=== PATIENT | male | born 1970 | race Caucasian/White ===

== ENCOUNTER 2016-02-19 13:42 | Inpatient (IN) | payer OTHER, BC ==
[2016-02-19 16:55] VITALS: BMI 36.1
--- NOTE | 2016-02-19 17:14 | HP ---
COWS - Scale Resting Pulse: 0= [place] 80 or Below Sweatin= Chills/Flushing Restless Observation: 3= Extraneous Movement Pupil Size: 0= Normal to Room Light Bone or Joint Aches: 2= Severe Diffuse Aches Runny Nose/ Eye Tearin= Runny Nose/Eyes GI Upset > 30mins: 1= Stomach Cramp Tremor Observation: 2= Slight Tremor Visible Yawning Observation: 0= None Anxiety or Irritability: 2=Irritable/Anxious Goose Flesh Skin: 3=Piloerection COWS Score: 16 CIWA Score - CIWA Score Headache: 0-None Present Admission ROS [facility]HS - HPI Chief Complaint: withdrawal sx Allergies/Adverse Reactions: Allergies Allergy/AdvReac Type Severity Reaction Status Date / Time Penicillins Allergy Verified 02/19/16 17:12 History of Present Illness: 45 years old male with long history of heroin nicotine dependence positive ppd denies mental illness, longest sobriety 17 years is admitted to detox Exam Limitations: No Limitations - Ebola screening Have you traveled outside of the country in the last 21 days: No Have you had contact with anyone from an Ebola affected area: No Have you been sick,other than usual withdrawal symptoms: No Do you have a fever: No - Review of Systems Constitutional: Chills, Changes in sleep EENT: reports: Other ( needed eye glasse) Respiratory: reports: No Symptoms reported Cardiac: reports: No Symptoms Reported GI: reports: Constipated, Poor Fluid Intake, Indigestion, Abdominal cramping : reports: No Symptoms Reported Musculoskeletal: reports: Back Pain, Joint Pain, Muscle Pain, Neck Pain Integumentary: reports: No Symptoms Reported, Other (denies skin conditions) Neuro: reports: Tremors Endocrine: reports: No Symptoms Reported Hematology: reports: No Symptoms Reported Psychiatric: reports: Judgement Intact, Mood/Affect Appropiate, Orientated x3 Other Systems: Reviewed and Negative Patient History - Patient Medical History Hx Anemia: No Hx Asthma: No Hx Chronic Obstructive Pulmonary Disease (COPD): No Hx Cancer: No Hx Cardiac Disorders: No Hx Congestive Heart Failure: No Hx Hypertension: No Hx Hypercholesterolemia: No Hx Pacemaker: No HX Cerebrovascular Accident: No Hx Seizures: No Hx Dementia: No Hx Diabetes: No Hx Gastrointestinal Disorders: No Hx Liver Disease: No Hx Genitourinary Disorders: No Hx Sexually Transmitted Disorders: No Hx Renal Disease (ESRD): No Hx Thyroid Disease: No Hx Human Immunodeficiency Virus (HIV): No Hx Hepatitis C: No Hx Depression: No Hx Suicide Attempt: No Hx Bipolar Disorder: No Hx Schizophrenia: No - Patient Surgical History Past Surgical History: Yes Hx Neurologic Surgery: No Hx Cataract Extraction: No Hx Cardiac Surgery: No Hx Lung Surgery: No Hx Breast Surgery: No Hx Breast Biopsy: No Hx Abdominal Surgery: No Hx Appendectomy: No Hx Cholecystectomy: No Hx Genitourinary Surgery: No Hx Orthopedic Surgery: Yes (left hip right knee 7 years old) Anesthesia Reaction: No - PPD History Previous Implant?: Yes Documented Results: Positive w/o proof Implanted On Prior [facility] Admission?: No PPD to be Administered?: No - Smoking Cessation Smoking history: Current every day smoker Have you smoked in the past 12 months: Yes Aproximately how many cigarettes per day: 10 Cigars Per Day: 0 Hx Chewing Tobacco Use: No Initiated information on smoking cessation: Yes 'Breaking Loose' booklet given: 02/19/16 - Substance & Tx. History Hx Alcohol Use: No Hx Substance Use: Yes Substance Use Type: Cocaine, Opiates, Tranquilizers Hx Substance Use Treatment: Yes - Substances Abused Alprazolam (Xanax) Route: Oral Frequency: 3-6 times per week Amount used: 1-2 mg Age of first use: 44 Date of Last Use: 02/17/16 Heroin Route: Inhalation Frequency: Daily Amount used: 2 1/2 g Age of first use: 20 Date of Last Use: 02/19/16 Family Disease History - Family Disease History Family History: Denies Admission Physical Exam S - Vital Signs Vital Signs: Vital Signs - 24 hr 02/19/16 16:51 Temperature 96.6 F L Pulse Rate 74 Respiratory 20 Rate Blood Pressure 124/65 - Physical General Appearance: Yes: Appropriately Dressed, Mild Distress, Tremorous, Irritable, Sweating, Anxious HEENTM: Yes: Hearing grossly Normal, Normal ENT Inspection, Normocephalic, Normal Voice Respiratory: Yes: Chest Non-Tender, Lungs Clear, Normal Breath Sounds, No Respiratory Distress, No Accessory Muscle Use Neck: Yes: Supple, Trachea in good position Breast: Yes: Breasts Symetrical Cardiology: Yes: Regular Rhythm, Regular Rate, S1, S2 Abdominal: Yes: Non Tender, Soft Genitourinary: Yes: Within Normal Limits Back: Yes: Normal Inspection Musculoskeletal: Yes: full range of Motion (left hip and right knee replacement at age 7), Gait Steady, Muscle Pain Extremities: Yes: Normal Inspection, Normal Range of Motion (left hip right knee replacement age 7), Non-Tender, Tremors Neurological: Yes: Fully Oriented, Alert, Motor Strength 5/5, Normal Mood/Affect , Normal Response Integumentary: Yes: Warm, Clammy Lymphatic: Yes: Within Normal Limits - Diagnostic (1) Opioid dependence with withdrawal Current Visit: Yes Status: Acute (2) Positive PPD, treated Current Visit: Yes Status: Resolved Comment: negative chest x ray 2 years ago (3) Status post left hip replacement Current Visit: Yes Status: Resolved Comment: mild limited range of motion (4) Status post right knee replacement Current Visit: Yes Status: Resolved Comment: mild limited range of motion (5) Nicotine dependence Current Visit: Yes Status: Acute Qualifiers: Nicotine product type: cigarettes Substance use status: uncomplicated Qualified Code(s): F17.210 - Nicotine dependence, cigarettes, uncomplicated Comment: nicotine replacement (6) Constipation Current Visit: Yes Status: Acute Qualifiers: Constipation type: slow transit constipation Qualified Code(s): K59.01 - Slow transit constipation Cleared for Admission [facility] - Detox or Rehab [facility] Level of Care: Medically Managed Detox Regimen/Protocol: Methadone [facility] Breath Alcohol Content Breath Alcohol Content: 0 Urine Drug Screen - Results Drug Screen Negative: No Urine Drug Screen Results: KALYAN-Cocaine, OPI-Opiates, BZO-Benzodiazepines, MTD- Methadone, TCA-Tricyclic Antidepress, OXY-Oxycodone
[2016-02-19] MEDS ORDERED: MENTHOL/PHENOL 1 EACH UD MM PRN (17:22)
[2016-02-19] MEDS ORDERED: MAGNESIUM HYDROX 2400MG/30ML ORAL SUSPENSION 30 ML CUP PO PRN (17:22)
[2016-02-19] MEDS ORDERED: MAG HYDROX/AL HYDROX/SIMETH 30 ML UNIT-DOSE CUP PO PRN (17:22)
[2016-02-19] MEDS ORDERED: MAGNESIUM CITRATE 300 ML BOTTLE PO PRN (17:22)
[2016-02-19] MEDS ORDERED: METHADONE HCL 10 MG TABLET (FOR DETOX USE ONLY) PO ONE ×2 (17:22→23:00)
[2016-02-19] MEDS ORDERED: guaiFENesin/D-METHORPHAN HB 10 ML UNIT-DOSE CUPS PO PRN (17:22)
[2016-02-19] MEDS ORDERED: LOPERAMIDE HCL 2 MG CAPSULE PO PRN (17:22)
[2016-02-19] MEDS ORDERED: NICOTINE POLACRILEX 2 MG GUM BUC PRN (17:22)
[2016-02-19] MEDS ORDERED: DOCUSATE SODIUM 100 MG CAPSULE (FP) PO PRN (17:31)
[2016-02-19] MEDS: diazePAM 5 MG TABLET PO PRN ×2 (18:35→22:06)
[2016-02-19 20:53] LABS: PH,URINE 5.5 (5.0-8.0); URINE APPEARANCE CLEAR; URINE BILIRUBIN NEGATIVE (NEGATIVE); URINE BLOOD NEGATIVE (NEGATIVE); URINE COLOR DK. ORANGE; URINE GLUCOSE (UA) NEGATIVE (NEGATIVE); URINE KETONE TRACE (NEGATIVE); URINE LEUK ESTERASE NEGATIVE (NEGATIVE); URINE NITRITE NEGATIVE (NEGATIVE); URINE PROTEIN TRACE (NEGATIVE); URINE UROBILINOGEN 0.2 E.U/dl E.U./dl (0.2-1.0)
[2016-02-19] MEDS: THIAMINE HCL 100 MG TABLET (FP) PO SCH (22:06)
[2016-02-19] MEDS: diphenhydrAMINE HCL 50 MG CAPSULE PO PRN (22:06)
[2016-02-19] MEDS: P-EPHED 60MG/TRIPROLIDI 2.5MG TABLET PO PRN (22:06)
[2016-02-20] MEDS: diphenhydrAMINE HCL 50 MG CAPSULE PO PRN ×2 (01:37→22:37)
[2016-02-20] MEDS: diazePAM 5 MG TABLET PO PRN ×2 (05:44→18:33)
[2016-02-20] MEDS ORDERED: METHADONE HCL 10 MG TABLET (FOR DETOX USE ONLY) PO ONE (10:00)
[2016-02-20 10:08] LABS: MCH 29.9 pg (25.7-33.7); MCHC 32.8 g/dl (32.0-35.9); MEAN CELL VOLUME 91.2 fl (80-96); MEAN PLT VOLUME 8.7 fl (7.5-11.1); PLATELET COUNT 251 K/MM3 (134-434); WHITE BLOOD COUNT 8.2 K/mm3 (4.0-10.0)
[2016-02-20 10:27] LABS: ALBUMIN 4.3 g/dl (3.4-5.0); ALK PHOS 114 U/L (45-117); ANION GAP 8 (8-16); BILIRUBIN,TOTAL 0.4 mg/dL (0.2-1.0); CALCIUM 9.7 mg/dL (8.5-10.1); CO2 28 mmol/L (21-32); CREATININE 0.9 mg/dL (0.7-1.3); GLUCOSE,RANDOM 84 mg/dL (74-106); SGOT/AST 13 U/L (15-37); SGPT/ALT 18 U/L (12-78); TOT PROT 7.8 g/dl (6.4-8.2)
[2016-02-20] MEDS: PRENATAL VITAMINS W/ FOLIC ACID TABLET (FP) PO SCH (10:27)
[2016-02-20] MEDS: NICOTINE 14 MG/24 HOURS TOPICAL PATCH TD SCH (10:28)
[2016-02-20] MEDS: P-EPHED 60MG/TRIPROLIDI 2.5MG TABLET PO PRN ×2 (10:28→22:37)
[2016-02-20] MEDS ORDERED: cloNIDine HCL 0.1 MG TABLET PO ONE (11:04)
[2016-02-20] MEDS ORDERED: LIDOCAINE 5% TOPICAL PATCH TP ONE (11:36)
[2016-02-20] MEDS: IBUPROFEN 400 MG TABLET (FP) PO PRN (11:52)
--- NOTE | 2016-02-20 13:08 | PN ---
S COWS - Scale Resting Pulse: 1= [place] 81-100 Sweatin=Flushed/Facial Moisture Restless Observation: 1= Difficult to Sit Still Pupil Size: 2= Moderately Dilated Bone or Joint Aches: 2= Severe Diffuse Aches Runny Nose/ Eye Tearin= Nasal Congestion GI Upset > 30mins: 2= Nausea/Diarrhea Tremor Observation of Outstretched Hands: 1= Tremor [place], Not Seen Yawning Observation: 0= None Anxiety or Irritability: 2=Irritable/Anxious Goose Flesh Skin: 0=Smooth Skin COWS Score: 14 S Progress Note (SOAP) Subjective: interrupted slep,sweats, diarrhea , bodyaches , lbp Objective: 02/20/16 13:06 Vital Signs Temperature 98.1 F 02/20/16 09:35 Pulse Rate 84 02/20/16 09:35 Respiratory Rate 20 02/20/16 09:35 Blood Pressure 126/60 02/20/16 09:35 O2 Sat by Pulse Oximetry (%) Laboratory Tests 02/19/16 02/20/16 02/20/16 19:30 06:00 06:00 WBC 8.2 RBC 5.20 Hgb 15.6 Hct 47.5 MCV 91.2 MCHC 32.8 RDW 15.0 Plt Count 251 MPV 8.7 Sodium 141 Potassium 3.6 Chloride 105 Carbon Dioxide 28 Anion Gap 8 BUN 9 Creatinine 0.9 Creat Clearance w eGFR > 60 Random Glucose 84 Calcium 9.7 Total Bilirubin 0.4 AST 13 L ALT 18 Alkaline Phosphatase 114 Total Protein 7.8 Albumin 4.3 Urine Color Dk. orange Urine Appearance Clear Urine pH 5.5 Ur Specific [place] >= 1.030 Urine Protein Trace H Urine Glucose (UA) Negative Urine Ketones Trace H Urine Blood Negative Urine Nitrite Negative Urine Bilirubin Negative Urine Urobilinogen 0.2 e.u/dl Ur Leukocyte Esterase Negative RPR Titer 02/20/16 06:00 WBC RBC Hgb Hct MCV MCHC RDW Plt Count MPV Sodium Potassium Chloride Carbon Dioxide Anion Gap BUN Creatinine Creat Clearance w eGFR Random Glucose Calcium Total Bilirubin AST ALT Alkaline Phosphatase Total Protein Albumin Urine Color Urine Appearance Urine pH Ur Specific [place] Urine Protein Urine Glucose (UA) Urine Ketones Urine Blood Urine Nitrite Urine Bilirubin Urine Urobilinogen Ur Leukocyte Esterase RPR Titer Nonreactive pt aox3 appearing uncomfortable , diaphoretic 02/20/16 13:08 Assessment: 02/20/16 13:07 withdrawl sx;s Plan: cont.detox increase fluids lidocaine patch motrin prn imodium prn
[2016-02-20] MEDS: cloNIDine HCL 0.1 MG TABLET PO SCH (22:37)
[2016-02-20] MEDS: THIAMINE HCL 100 MG TABLET (FP) PO SCH (22:37)
[2016-02-21] MEDS: diphenhydrAMINE HCL 50 MG CAPSULE PO PRN (02:00)
[2016-02-21] MEDS: diazePAM 5 MG TABLET PO PRN ×4 (02:24→22:56)
[2016-02-21] MEDS: IBUPROFEN 400 MG TABLET (FP) PO PRN ×3 (02:24→22:52)
[2016-02-21] MEDS: TRIMETHOBENZAMIDE HCL 200MG/2ML INJ IM PRN (05:48)
[2016-02-21] MEDS ORDERED: METHADONE HCL 5 MG TABLET (FOR DETOX USE ONLY) PO ONE (10:00)
[2016-02-21] MEDS: cloNIDine HCL 0.1 MG TABLET PO SCH ×2 (10:17→22:49)
[2016-02-21] MEDS: NICOTINE 14 MG/24 HOURS TOPICAL PATCH TD SCH (10:18)
[2016-02-21] MEDS: LIDOCAINE 5% TOPICAL PATCH TP SCH (10:19)
[2016-02-21] MEDS: PRENATAL VITAMINS W/ FOLIC ACID TABLET (FP) PO SCH (10:21)
--- NOTE | 2016-02-21 11:26 | PN ---
[facility] COWS - Scale Resting Pulse: 0= [place] 80 or Below Sweatin=Flushed/Facial Moisture Restless Observation: 1= Difficult to Sit Still Pupil Size: 0= Normal to Room Light Bone or Joint Aches: 2= Severe Diffuse Aches Runny Nose/ Eye Tearin= Runny Nose/Eyes GI Upset > 30mins: 1= Stomach Cramp Tremor Observation of Outstretched Hands: 2= Slight Tremor Visible Yawning Observation: 0= None Anxiety or Irritability: 2=Irritable/Anxious Goose Flesh Skin: 0=Smooth Skin COWS Score: 12 S Progress Note (SOAP) Subjective: agitation sweats nausea diarrhea stuff nose Objective: 02/21/16 11:27 Vital Signs Temperature 98.6 F 02/21/16 10:04 Pulse Rate 74 02/21/16 10:04 Respiratory Rate 16 02/21/16 10:04 Blood Pressure 138/61 02/21/16 10:04 O2 Sat by Pulse Oximetry (%) Laboratory Tests 02/19/16 02/20/16 02/20/16 19:30 06:00 06:00 WBC 8.2 RBC 5.20 Hgb 15.6 Hct 47.5 MCV 91.2 MCHC 32.8 RDW 15.0 Plt Count 251 MPV 8.7 Sodium 141 Potassium 3.6 Chloride 105 Carbon Dioxide 28 Anion Gap 8 BUN 9 Creatinine 0.9 Creat Clearance w eGFR > 60 Random Glucose 84 Calcium 9.7 Total Bilirubin 0.4 AST 13 L ALT 18 Alkaline Phosphatase 114 Total Protein 7.8 Albumin 4.3 Urine Color Dk. orange Urine Appearance Clear Urine pH 5.5 Ur Specific [place] >= 1.030 Urine Protein Trace H Urine Glucose (UA) Negative Urine Ketones Trace H Urine Blood Negative Urine Nitrite Negative Urine Bilirubin Negative Urine Urobilinogen 0.2 e.u/dl Ur Leukocyte Esterase Negative RPR Titer 02/20/16 06:00 WBC RBC Hgb Hct MCV MCHC RDW Plt Count MPV Sodium Potassium Chloride Carbon Dioxide Anion Gap BUN Creatinine Creat Clearance w eGFR Random Glucose Calcium Total Bilirubin AST ALT Alkaline Phosphatase Total Protein Albumin Urine Color Urine Appearance Urine pH Ur Specific [place] Urine Protein Urine Glucose (UA) Urine Ketones Urine Blood Urine Nitrite Urine Bilirubin Urine Urobilinogen Ur Leukocyte Esterase RPR Titer Nonreactive awake/alert ambulating no acute distress Assessment: 02/21/16 11:28 withdrawal sx Plan: continue detox increase fluids analgesic balm immodium prn [place] prn ensure bid
[2016-02-21] MEDS: ACETAMINOPHEN 325 MG TABLET (FP) PO PRN (15:22)
[2016-02-21] MEDS: METHYL SALICYLATE/MENTHOL OINT 30 GM TUBE TP SCH (22:49)
[2016-02-21] MEDS: THIAMINE HCL 100 MG TABLET (FP) PO SCH (22:49)
[2016-02-21] MEDS: SODIUM CHLORIDE NASAL SPRAY 44 ML BOTTLE NS PRN (22:54)
--- NOTE | 2016-02-21 23:57 | EKG ---
Test Reason : Blood Pressure : / mmHG Vent. Rate : 069 BPM Atrial Rate : 069 BPM P-R Int : 160 ms QRS Dur : 122 ms QT Int : 386 ms P-R-T Axes : 042 020 036 degrees QTc Int : 413 ms POOR DATA QUALITY, INTERPRETATION MAY BE ADVERSELY AFFECTED NORMAL SINUS RHYTHM RIGHT BUNDLE BRANCH BLOCK ABNORMAL ECG NO PREVIOUS ECGS AVAILABLE Confirmed by LUL VELAZQUEZ MD ([id number]) on 02/21/2016 11:57:19 PM Referred By: Confirmed By:LUL VELAZQUEZ MD
[2016-02-22] MEDS: diphenhydrAMINE HCL 50 MG CAPSULE PO PRN ×2 (01:46→22:03)
[2016-02-22] MEDS: diazePAM 5 MG TABLET PO PRN ×3 (03:15→17:13)
[2016-02-22] MEDS: P-EPHED 60MG/TRIPROLIDI 2.5MG TABLET PO PRN (03:21)
[2016-02-22] MEDS: TRIMETHOBENZAMIDE HCL 200MG/2ML INJ IM PRN (03:21)
[2016-02-22] MEDS ORDERED: AMMONIUM LACTATE 12% LOTION 225 GM BOTTLE TP PRN (09:30)
--- NOTE | 2016-02-22 09:53 | PN ---
[facility] Progress Note (SOAP) Subjective: interrupted sleep, sweats , cold , dry skin Objective: 02/22/16 09:52 Vital Signs Temperature 97.9 F 02/22/16 05:54 Pulse Rate 80 02/22/16 05:54 Respiratory Rate 18 02/22/16 05:54 Blood Pressure 122/91 02/22/16 05:54 O2 Sat by Pulse Oximetry (%) Laboratory Tests 02/19/16 02/20/16 02/20/16 19:30 06:00 06:00 WBC 8.2 RBC 5.20 Hgb 15.6 Hct 47.5 MCV 91.2 MCHC 32.8 RDW 15.0 Plt Count 251 MPV 8.7 Sodium 141 Potassium 3.6 Chloride 105 Carbon Dioxide 28 Anion Gap 8 BUN 9 Creatinine 0.9 Creat Clearance w eGFR > 60 Random Glucose 84 Calcium 9.7 Total Bilirubin 0.4 AST 13 L ALT 18 Alkaline Phosphatase 114 Total Protein 7.8 Albumin 4.3 Urine Color Dk. orange Urine Appearance Clear Urine pH 5.5 Ur Specific [place] >= 1.030 Urine Protein Trace H Urine Glucose (UA) Negative Urine Ketones Trace H Urine Blood Negative Urine Nitrite Negative Urine Bilirubin Negative Urine Urobilinogen 0.2 e.u/dl Ur Leukocyte Esterase Negative RPR Titer 02/20/16 06:00 WBC RBC Hgb Hct MCV MCHC RDW Plt Count MPV Sodium Potassium Chloride Carbon Dioxide Anion Gap BUN Creatinine Creat Clearance w eGFR Random Glucose Calcium Total Bilirubin AST ALT Alkaline Phosphatase Total Protein Albumin Urine Color Urine Appearance Urine pH Ur Specific [place] Urine Protein Urine Glucose (UA) Urine Ketones Urine Blood Urine Nitrite Urine Bilirubin Urine Urobilinogen Ur Leukocyte Esterase RPR Titer Nonreactive Assessment: 02/22/16 09:52 withdrawal sx;s Plan: cont. detox increase fluids lachydrin lotion
[2016-02-22] MEDS ORDERED: METHADONE HCL 5 MG TABLET (FOR DETOX USE ONLY) PO ONE (10:00)
[2016-02-22] MEDS: SODIUM CHLORIDE NASAL SPRAY 44 ML BOTTLE NS PRN (10:17)
[2016-02-22] MEDS: PRENATAL VITAMINS W/ FOLIC ACID TABLET (FP) PO SCH (10:17)
[2016-02-22] MEDS: cloNIDine HCL 0.1 MG TABLET PO SCH ×2 (10:18→22:03)
[2016-02-22] MEDS: METHYL SALICYLATE/MENTHOL OINT 30 GM TUBE TP SCH (10:18)
[2016-02-22] MEDS: NICOTINE 14 MG/24 HOURS TOPICAL PATCH TD SCH (10:18)
[2016-02-22] MEDS: LIDOCAINE 5% TOPICAL PATCH TP SCH (10:22)
[2016-02-22] MEDS: THIAMINE HCL 100 MG TABLET (FP) PO SCH (22:03)
[2016-02-23] MEDS: diphenhydrAMINE HCL 50 MG CAPSULE PO PRN ×2 (02:29→22:22)
[2016-02-23] MEDS: SODIUM CHLORIDE NASAL SPRAY 44 ML BOTTLE NS PRN ×2 (02:32→10:23)
[2016-02-23] MEDS: P-EPHED 60MG/TRIPROLIDI 2.5MG TABLET PO PRN (02:32)
[2016-02-23] MEDS ORDERED: METHADONE HCL 10 MG TABLET (FOR DETOX USE ONLY) PO ONE (10:00)
[2016-02-23] MEDS: NICOTINE 14 MG/24 HOURS TOPICAL PATCH TD SCH (10:22)
[2016-02-23] MEDS: METHYL SALICYLATE/MENTHOL OINT 30 GM TUBE TP SCH (10:23)
[2016-02-23] MEDS: PRENATAL VITAMINS W/ FOLIC ACID TABLET (FP) PO SCH (10:23)
[2016-02-23] MEDS: cloNIDine HCL 0.1 MG TABLET PO SCH ×2 (10:23→22:22)
[2016-02-23] MEDS: LIDOCAINE 5% TOPICAL PATCH TP SCH (10:26)
--- NOTE | 2016-02-23 11:14 | PN ---
BHS Progress Note (SOAP) Subjective: ALERT,IRRITABLE,ANXIOUS,INTERRUPTED SLEEP Objective: 02/23/16 11:12 Vital Signs Temperature 97.1 F L 02/23/16 10:06 Pulse Rate 81 02/23/16 10:06 Respiratory Rate 18 02/23/16 10:06 Blood Pressure 118/61 02/23/16 10:06 O2 Sat by Pulse Oximetry (%) 02/23/16 11:13 02/23/16 11:13 Assessment: 02/23/16 11:14 WITHDRAWAL SYMPTOM Plan: CONTINUE DETOX
[2016-02-23] MEDS: IBUPROFEN 400 MG TABLET (FP) PO PRN (20:55)
[2016-02-23] MEDS: THIAMINE HCL 100 MG TABLET (FP) PO SCH (22:22)
[2016-02-24] MEDS: diphenhydrAMINE HCL 50 MG CAPSULE PO PRN (02:25)
[2016-02-24] MEDS: ACETAMINOPHEN 325 MG TABLET (FP) PO PRN (02:25)
[2016-02-24] MEDS ORDERED: METHADONE HCL 5 MG TABLET (FOR DETOX USE ONLY) PO ONE (06:00)
[2016-02-24] MEDS: SODIUM CHLORIDE NASAL SPRAY 44 ML BOTTLE NS PRN (06:01)
--- NOTE | 2016-02-24 09:08 | PN ---
S Progress Note (SOAP) Subjective: ALERT,NO COMPLAINT Objective: 02/24/16 09:06 Vital Signs Temperature 98.1 F 02/24/16 06:00 Pulse Rate 75 02/24/16 06:00 Respiratory Rate 18 02/24/16 06:00 Blood Pressure 117/64 02/24/16 06:00 O2 Sat by Pulse Oximetry (%) Assessment: 02/24/16 09:06 DETOX COMPLETED,NO WITHDRAWAL SYMPTOM Plan: DISCHARGE TODAY,FOLLOW UP WITH AFTER CARE PROGRAM ARRANGEMENT
--- NOTE | 2016-02-24 09:13 | DS ---
[facility] Detox Discharge Summary Admission Date: 02/19/16 Discharge Date: 02/24/16 - History Present History: Opioid Dependence Additional Comments: FOLLOW UP WITH AFTER CARE PROGRAM ARRANGEMENT Pertinent Past History: S/P LEFT HIP REPLACEMENT S/P RIGHT KNEE REPLACEMENT - Physical Exam Results Vital Signs: Vital Signs Temperature 98.1 F 02/24/16 06:00 Pulse Rate 75 02/24/16 06:00 Respiratory Rate 18 02/24/16 06:00 Blood Pressure 117/64 02/24/16 06:00 O2 Sat by Pulse Oximetry (%) Pertinent Admission Physical Exam Findings: WITHDRAWAL SYMPTOM - Treatment Hospital Course: Detox Protocol Followed, Detoxed Safely, Responded well, Discharged Condition Good Patient has Accepted a Rehab Referral to: DECLINED - Medication Discharge Medications: Ambulatory Orders NK [No Known Home Medication] 02/19/16 - AMA Did Patient Leave Against Medical Advice: No
[2016-02-24 10:27] VITALS: BP 125/62; PULSE 72; TEMP 98.2
--- NOTE | 2016-02-24 16:33 | EKG ---
Test Reason : Blood Pressure : / mmHG Vent. Rate : 063 BPM Atrial Rate : 063 BPM P-R Int : 152 ms QRS Dur : 120 ms QT Int : 402 ms P-R-T Axes : -01 012 030 degrees QTc Int : 411 ms NORMAL SINUS RHYTHM NON-SPECIFIC INTRA-VENTRICULAR CONDUCTION DELAY BORDERLINE ECG WHEN COMPARED WITH ECG OF 19-FEB-2016 18:41, NON-SPECIFIC INTRA-VENTRICULAR CONDUCTION DELAY HAS REPLACED RIGHT BUNDLE BRANCH BLOCK Confirmed by LETTY GOULD MD ([id number]) on 02/24/2016 4:33:23 PM Referred By: Confirmed By:LETTY GOULD MD
== END 2016-02-24 09:38 | disposition home or self-care (01) | DRG 773 ==
LOC: YASAS 13:42 → Y6N 17:55
PROVIDERS: ADMIT Internal Medicine Addiction Medicine; ATTEND Internal Medicine Addiction Medicine
PROC: HZ2ZZZZ Detoxification Services for Substance Abuse Treatment (ICD-10-PCS; principal; 2016-02-19)
DX: F11.23 Opioid dependence with withdrawal (principal); F17.210 Nicotine dependence, cigarettes, uncomplicated; R76.11 Nonspecific reaction to tuberculin skin test without active tuberculosis; K59.01 Slow transit constipation; Z96.642 Presence of left artificial hip joint; Z96.651 Presence of right artificial knee joint
CPT/HCPCS: 36415; 71020-TC; 80053; 81003; 85027; 86593; 93005; 93010